=== PATIENT | male | born 1985 ===

== ENCOUNTER 2019-03-06 15:59 | Emergency (ER) | payer OTHER ==
[2019-03-06 16:03] VITALS: BP 134/95
--- NOTE | 2019-03-06 16:20 | ER Report ---
History and Physical Time Seen By MD: 16:10 Hx. of Stated Complaint: patient states that he was cutting up a credit card when he accidently cut the tip of his left ring finger HPI/ROS CHIEF COMPLAINT: Finger injury HISTORY OF PRESENT ILLNESS: 33-year-old right-hand dominant male was cutting plastic credit cards with scissors when he snipped the soft tissue tip of his left index finger. He has mild pain. He presents because it has continued to ooze despite direct pressure. He has no bleeding problems. He has no heart problems. He has had no presyncope. He has no other injuries. His tetanus is up-to-date as of last year. Remainder of the 14 system rev: Yes Allergies: Coded Allergies: No Known Drug Allergies (Unverified , 03/06/19) Home Meds No Active Prescriptions or Reported Meds Hx Substance Use Disorder: No Hx Alcohol Use: Yes (occ.) Constitutional Vital Sign - Last 24 Hours 03/06/19 16:03 Temp 98.0 Pulse 85 Resp 17 B/P (MAP) 134/95 Pulse Ox 92 O2 Delivery Room Air Physical Exam General appearance: Alert no distress. Respiratory: no respiratory distress Cardiac: good perfusion left index finger avulsion of distal soft tissue tip. No nailbed, bone involvement. No fb. No arterial bleeding. DIFFERENTIAL DIAGNOSIS: After history and physical exam differential diagnosis was considered for laceration, foreign body, bone, tendon, joint involvement Medical Decision Making ED Course/Re-evaluation ED Course 33 y/o f presents with left index finger pad avulsion. no laceration to repair. Bleeding controlled with surgicel. No systemic symptoms. D/c with SRP's for infection, bleeding. Decision to Disposition Date: March 06, 2019 Decision to Disposition Time: 16:21 Depart Departure Latest Vital Signs Vital Signs Date Time Temp Pulse Resp B/P (MAP) Pulse Ox O2 Delivery O2 Flow Rate FiO2 03/06/19 16:03 98.0 85 17 134/95 92 Room Air Impression: Primary Impression: Fingertip avulsion Condition: Improved Disposition: HOME OR SELF-CARE New Scripts No Active Prescriptions or Reported Meds Patient Instructions: Finger Laceration (ED) Additional Instructions: You may repeat the surgicel/wrapping if bleeding continues. Apply bacitracin (may be purchased over the counter) three times daily. Return for signs of infection, uncontrolled bleeding, or any concerns. Problem Qualifiers Primary Impression: Fingertip avulsion Encounter type: initial encounter Qualified Codes: S61.209A - Unspecified open wound of unspecified finger without damage to nail, initial encounter LILIA STUBBS MD March 06, 2019 16:20
== END 2019-03-06 16:41 | disposition home or self-care (01) ==
LOC: ER 16:05
DX: S61.201A Unspecified open wound of left index finger without damage to nail, initial encounter (principal); W45.8XXA Other foreign body or object entering through skin, initial encounter
CPT/HCPCS: 99282